=== PATIENT | male | born 1995 | race Caucasian/White ===

== ENCOUNTER 2016-04-02 08:34 | Emergency (ER) | payer BC, OTHER ==
[2016-04-02 08:54] VITALS: BP 148/83
[2016-04-02] MEDS ORDERED: Acetaminophen TAB* 325 MG PO ONE (09:00)
[2016-04-02] MEDS ORDERED: Ondansetron ODT TAB* 4 MG PO ONE (10:09)
--- NOTE | 2016-04-02 10:09 | UC ---
FLU HPI - HPI Summary HPI Summary: The patient comes in today for: 1. Chills, sweats, arthralgia, sore throat, fever: Onset: 3 days ago. Palliative/provocative: ibuprofen helps bring the fever down. Quality: Aching of the joints Region: knees, hips, shoulders, Severity: 6/10 Time: Constant. Associated symptoms: Flu vaccine: Had. Fevers: 103--last night. Rhinitis: None. Cough: Present, but not productive Inhaler use: IN the past. Vomiting: None. Nausea: Present. Diarrhea: None. * - History of Current Complaint Chief Complaint: UCGeneralIllness Stated Complaint: RESPIRATORY COMPLAINT Time Seen by Provider: 04/02/16 09:00 Hx Obtained From: Patient - Allergy/Home Medications Allergies/Adverse Reactions: Allergies Allergy/AdvReac Type Severity Reaction Status Date / Time No Known Allergies Allergy Verified 04/02/16 08:46 Home Medications: Home Medications Ibuprofen TAB* [Advil TAB*] 400 mg PO Q6H PRN 04/02/16 [History Confirmed ] PMH/Surg Hx/FS Hx/Imm Hx Previously Healthy: Yes Endocrine History Of: Denies: Diabetes, Thyroid Disease, Hyperthyroidism, Hypothyroidism, Dyslipidemia Cardiovascular History Of: Denies: Cardiac Disorders, Hypertension, Pacemaker/ICD, Myocardial Infarction , Congestive Heart Failure, Atrial Fibrillation, Deep Vein Thrombosis, Bleeding Disorders Respiratory History Of: Denies: COPD, Asthma, Bronchitis, Pneumonia, Pulmonary Embolism GI/ History Of: Denies: Gastroesophageal Reflux, Ulcer, Gastrointestinal Bleed, Gall Bladder Disease, Kidney Stones, Diverticulitis, Renal Disease, Urosepsis Neurological History Of: Denies: TIA, CVA, Dementia, Seizures, Migraine Psychological History Of: Denies: Anxiety, Depression, Bipolar Disorder, Schizophrenia, Post Traumatic Stress Disorder Cancer History Of: Denies: Lung Cancer, Colorectal Cancer, Breast Cancer, Prostate Cancer, Cervical Cancer Other History Of: Negative For: HIV, Hepatitis B, Hepatitis C, Anticoagulant Therapy - Surgical History Surgical History: None - Family History Known Family History: Positive: Hypertension, Diabetes Negative: Cardiac Disease - Social History Occupation: Employed Full-time Alcohol Use: Occasionally Substance Use Type: None Smoking Status (MU): Light Every Day Tobacco Smoker Type: Cigarettes Amount Used/How Often: 1/7 PPD Length of Time of Smoking/Using Tobacco: 2 years Have You Smoked in the Last Year: Yes Household Exposure Type: Cigarettes - Immunization History Most Recent Influenza Vaccination: January 2016 Vaccination Up to Date: Yes Review of Systems Constitutional: Fever Skin: Negative Eyes: Negative ENT: Sore Throat Respiratory: Shortness Of Breath - "Only when I get upset.", Cough Cardiovascular: Negative Gastrointestinal: Negative Genitourinary: Negative All Other Systems Reviewed And Are Negative: Yes Physical Exam Triage Information Reviewed: Yes Appearance: Ill-Appearing - He moves slowly. Vital Signs: Initial Vital Signs Temp 101 F 04/02/16 08:44 Pulse 102 04/02/16 08:44 Resp 18 04/02/16 08:44 BP 148/83 04/02/16 08:44 Pulse Ox 100 04/02/16 08:44 Vital Signs Reviewed: No Eyes: Positive: Conjunctiva Clear. Negative: Discharge ENT: Positive: Hearing grossly normal. Negative: Pharyngeal erythema, Nasal congestion, Nasal drainage, TM bulging, TM dull, TM red, Tonsillar swelling, Tonsillar exudate Dental: Negative: Gross Decay/Caries @, Dental Fracture @ Neck: Positive: Supple, Nontender, No Lymphadenopathy. Negative: Nuchal Rigidity Respiratory: Positive: Chest non-tender, Lungs clear, No respiratory distress, No accessory muscle use. Negative: Crackles, Wheezing Cardiovascular: Positive: RRR, No Murmur Abdomen Description: Positive: Nontender, No Organomegaly, Soft. Negative: Distended, Guarding Musculoskeletal: Positive: Strength Intact, ROM Intact Neurological: Positive: Alert, Muscle Tone Normal Psychological: Positive: Normal Response To Family, Age Appropriate Behavior, Consolable Skin: Negative: rashes, breakdown Diagnostics - Laboratory Diagnostic Studies Completed/Ordered: IMPRESSION: No active cardiopulmonary disease is noted. - Radiology No standard instances Xray Interpretation: No Acute Changes Radiology Interpretation Completed By: Radiologist Flu Course/Dx - Differential Dx/Diagnosis Provider Diagnoses: Viral syndrome Discharge - Discharge Plan Condition: Stable Disposition: HOME Patient Education Materials: Viral Syndrome (ED) Forms: *Work Release Referrals: Jerry Garcia [Medical Doctor] - 1 Week (Please see your primary care provider in about a week to see how well you are doing. If you get worse, please be seen sooner.)
--- NOTE | 2016-04-02 10:44 | RAD ---
Indication: Cough, fever and shortness of breath. 2 views of the chest including dual energy PA views demonstrate no mediastinal shift. Heart is of normal size and configuration. Lung kruse demonstrate no pleural fluid, pneumonia or pneumothorax. IMPRESSION: No active cardiopulmonary disease is noted.
== END 2016-04-02 11:12 | disposition home or self-care (01) ==
LOC: UCCORT 08:34
DX: B34.9 Viral infection, unspecified (principal); R50.9 Fever, unspecified; M25.512 Pain in left shoulder; M25.511 Pain in right shoulder; M25.552 Pain in left hip; M25.551 Pain in right hip; M25.562 Pain in left knee; M25.561 Pain in right knee; F17.210 Nicotine dependence, cigarettes, uncomplicated
CPT/HCPCS: 71020; 87502; 87651; 99202; A9270-GY; G0463

== ENCOUNTER 2018-03-05 13:21 | Emergency (ER) | payer OTHER ==
[2018-03-05 13:29] VITALS: BP 159/84
[2018-03-05] MEDS ORDERED: Lidocaine 2% VISCOUS* 15 ML UDC PO ONE (13:33)
[2018-03-05] MEDS ORDERED: Al Hydrox/Mg Hydrox/Simet LIQ* 30 ML UDC PO ONE (13:34)
--- NOTE | 2018-03-05 13:38 | UC ---
Cardiac HPI - HPI Summary HPI Summary: 22-year-old male comes to clinic today with chief complaint of chest pain. Started about one hour ago while he was driving. It's mid lower sternum. His describes it as is burning and sharp. Denies any abdominal pain. He did try some Tums and some milk as he's had GERD issues in the past which did not help. - History of Current Complaint Chief Complaint: UCChestPain Stated Complaint: CHEST PAIN Time Seen by Provider: 03/05/18 13:27 Pain Intensity: 9 - Allergy/Home Medications Allergies/Adverse Reactions: Allergies Allergy/AdvReac Type Severity Reaction Status Date / Time No Known Allergies Allergy Verified 03/05/18 13:29 Home Medications: Home Medications Propranolol TAB* [Inderal TAB*] 20 mg PO DAILY 03/05/18 [History Confirmed 03/05] Sertraline* [Zoloft*] 25 mg PO DAILY 03/05/18 [History Confirmed 03/05/18] PMH/Surg Hx/FS Hx/Imm Hx Previously Healthy: Yes Psychological History: Anxiety, Depression Other History Of: Negative For: HIV, Hepatitis B, Hepatitis C, Anticoagulant Therapy - Surgical History Surgical History: None Surgery Procedure, Year, and Place: Sep 2016 varicocelectomy - Family History Known Family History: Positive: Hypertension, Diabetes Negative: Cardiac Disease - Social History Alcohol Use: Occasionally Substance Use Type: None Smoking Status (MU): Never Smoked Tobacco Type: Cigarettes, eCigarettes Amount Used/How Often: 1/7 PPD Length of Time of Smoking/Using Tobacco: 2 years Have You Smoked in the Last Year: Yes Household Exposure Type: Cigarettes - Immunization History Most Recent Influenza Vaccination: January 2016 Vaccination Up to Date: Yes Review of Systems All Other Systems Reviewed And Are Negative: Yes Constitutional: Positive: Negative Skin: Positive: Negative Eyes: Positive: Negative ENT: Positive: Negative Respiratory: Positive: Negative Cardiovascular: Positive: Chest Pain Gastrointestinal: Positive: Negative Motor: Positive: Negative Neurovascular: Positive: Negative Musculoskeletal: Positive: Negative Neurological: Positive: Negative Psychological: Positive: Anxious Is Patient Immunocompromised?: No Physical Exam Triage Information Reviewed: Yes Appearance: Well-Appearing, Well-Nourished, Pain Distress - mild Vital Signs: Initial Vital Signs Temp 98.1 F 03/05/18 13:26 Pulse 74 03/05/18 13:26 Resp 20 03/05/18 13:26 BP 159/84 03/05/18 13:26 Pulse Ox 98 03/05/18 13:26 Vital Signs Reviewed: Yes Eye Exam: Normal Eyes: Positive: Conjunctiva Clear Neck exam: Normal Neck: Positive: Supple Respiratory: Positive: Lungs clear, Normal breath sounds, No respiratory distress Cardiovascular: Positive: RRR Abdomen Description: Positive: Nontender, Soft Bowel Sounds: Positive: Present Musculoskeletal Exam: Normal Musculoskeletal: Positive: Strength Intact, ROM Intact, No Edema, Other: - no calf tenderness Neurological Exam: Normal Neurological: Positive: Alert, Muscle Tone Normal Psychological Exam: Normal Psychological: Positive: Age Appropriate Behavior Skin Exam: Normal Diagnostics - EKG Cardiac Rate: NL - AT 13:22 Cardiac Rhythm: Sinus: Normal - 80 BPM Ectopy: None - ST ELEVATION CONCAVE UP CONSISTENT WITH EARLY REPOLARIZATION - Assessment/Plan Course Of Treatment: The EKG did not show any ischemic changes. He does have early repolarization it is concave up. Patient describes his pain as burning and sharp. The pain did decrease with viscous lidocaine and Maalox. No calf pain or tenderness. Patient is low risk for pulmonary embolus. He is not short of breath. We did discuss getting a chest x-ray to rule out pneumothorax the patient declined saying that is not short of breath. We discussed pulmonary emboli and cardiac causes of chest pain and the need to be in the emergency department to evaluate for these causes. At this time the patient declined going to the emergency department for further evaluation and he plans to treat for GERD. - Clinical Impression Provider Diagnosis: Chest pain Discharge - Sign-Out/Discharge Documenting (check all that apply): Patient Departure All imaging exams completed and their final reports reviewed: Yes - Discharge Plan Condition: Stable Disposition: HOME Prescriptions: Omeprazole 20 mg PO BID #30 tablet. Patient Education Materials: Chest Pain (ED) Referrals: [facility] [Outside] Additional Instructions: FOLLOW UP WITH YOUR DOCTOR. GO TO THE EMERGENCY DEPARTMENT FOR ANY WORSENING OF YOUR CONDITION; CONTINUED OR WORSE PAIN, SHORTNESS OF BREATH OR QUESTIONS OR CONCERNS. - Billing Disposition and Condition Condition: STABLE Disposition: Home
[2018-03-05] MEDS ORDERED: Omeprazole CAP (NF) 20 MG CAP.DR PO ONE (14:08)
== END 2018-03-05 14:22 | disposition home or self-care (01) ==
LOC: UCCORT 13:21
DX: R07.9 Chest pain, unspecified (principal); F41.8 Other specified anxiety disorders; F17.290 Nicotine dependence, other tobacco product, uncomplicated
CPT/HCPCS: 93005; 99212; A9270-GY; G0463